=== PATIENT | male | born 1995 | race African-American/Black ===

== ENCOUNTER 2018-03-26 19:19 | Emergency (ER) | payer OTHER ==
[~2018-03-26] VITALS: Ht 180.3 cm; Wt 69.4 kg
[2018-03-26 19:20] VITALS: BP 117/80
--- NOTE | 2018-03-26 19:59 | NUR ---
PT TAKEN TO BED 5
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
[2018-03-26] MEDS ORDERED: KETOROLAC 60 MG/2 ML VIAL IM ONE (20:30)
[2018-03-26 21:18] VITALS: BP 100/52
== END 2018-03-26 21:13 | disposition home or self-care (01) ==
LOC: MED 19:19 → EDSEX 19:19 → MED 21:13
DX: S30.0XXA Contusion of lower back and pelvis, initial encounter (principal); J45.909 Unspecified asthma, uncomplicated; Y00.XXXA Assault by blunt object, initial encounter; Y93.89 Activity, other specified; Y99.8 Other external cause status; Y92.89 Other specified places as the place of occurrence of the external cause
CPT/HCPCS: 96372; 99283; J1885